=== PATIENT | male | born 1965 | race Caucasian/White ===

== ENCOUNTER 2021-06-30 09:51 | Outpatient (RCR) | payer BC, SELFPAY ==
[2021-06-30] MEDS: diphenhydrAMINE HCl CAP 25 MG CAPSULE PO (12:13)
[2021-06-30] MEDS: FAMOTIDINE 20 MG TABLET PO (12:13)
[2021-06-30] MEDS: ACETAMINOPHEN 325 MG TABLET 650 MG PO (12:13)
[2021-06-30 12:17] VITALS: BP 162/90; PULSE 77; RESP 20; TEMP 36.4; O2SAT 100
[2021-06-30 13:43] VITALS: BP 144/93; PULSE 70; O2SAT 98
== END 2021-06-30 17:00 ==
LOC: AMCINF 09:51
PROVIDERS: PCP Physician Assistant; Visit Provider Internal Medicine Hematology & Oncology
DX: U07.1 COVID-19 (principal)
CPT/HCPCS: A9270; M0243; Q0244

== ENCOUNTER 2021-07-03 09:39 | Outpatient (CLI) | payer BC, SELFPAY ==
--- NOTE | ~2021-07-03 | CT_ITS ---
EXAMINATION: CT brain wo con DATE: 07/03/2021 10:03 INDICATION: Cerebral infarction, unspecified. TECHNIQUE: Computed tomography (CT) of the head was performed without intravenous contrast. The mA wa s adjusted according to patient size. Iterative reconstruction technique was employed. The dose-lengt h product was 681.00 mGy-cm. COMPARISON: None FINDINGS: There is a 5.7 x 3.9 x 4.2 cm mass involving the right thalamus and right temporal lobe. Th e mass demonstrates a periphery that is predominantly isodense to ascencio matter. The central portions o f the mass are predominantly hypodense. The mass demonstrates areas of internal hyperdensity there ar e likely intratumoral hemorrhage. There is 7 mm leftward midline shift. There is mass effect on right lateral ventricle. There is no acute ischemic infarct. There is mild mucosal thickening in the paran radha sinuses. The mastoid air cells are normal. The orbits are normal. IMPRESSION: 1. 5.7 cm mass involving the right thalamus and right temporal lobe, most likely glioblastoma. I call ed this result to Florencio Tellez. Reviewed, dictated and finalized at location B. LING TECH IMPRESSION: 1. 5.7 cm mass involving the right thalamus and right temporal lobe, most likel y glioblastoma. I called this result to Florencio Tellez.
== END 2021-07-03 09:40 | disposition home or self-care (01) ==
PROVIDERS: PCP Internal Medicine; Visit Provider Physician Assistant
DX: I63.9 Cerebral infarction, unspecified (principal)
CPT/HCPCS: 70450

== ENCOUNTER 2021-11-13 14:00 | Outpatient (RCR) | payer BC, SELFPAY ==
--- NOTE | 2021-10-15 10:36 | PTOPEVAL ---
PHYSICAL THERAPY EVALUATION AND PLAN OF CARE 10-15-21 Thank you for referring Andrea Juarez III to [facility] for the diagnosis of L hemiparesis. Venkata is scheduled to be seen for therapy? 2 x/week for 4 weeks. Please review, sign, date and return this plan of care EULALIA. I agree with and certify that the following plan of care is medically necessary. Referring Physician Date Attending Provider: Kristan Hua MD CC: Dr. Damon, per pt request Source of Past Medical History Patient Neurological History Hx Other Neurological Disorders Yes: weakness L side due to brain surgery Cardiovascular History Hx Hypercholesterolemia Yes: meds Respiratory History Hx COVID-19 Yes: Jun 2021 Gastrointestinal History Hx Gastrointestinal Disorders No Significant History Genitourinary History Hx Genitourinary Disorders No Significant History Musculoskeletal History Hx Musculoskeletal Disorders No Significant History Hematological History Hx Hematological Disorders No Significant History Endocrine History Hx Endocrine Disorders No Significant History HEENT History Hx HEENT Disorders No Significant History Other History Hx Cancer Yes: malignant neoplasm brain, found visual field issues; Hx Chemotherapy Yes: for 6 weeks, completed Hx Radiation Therapy Yes: for 6 weeks; completed Evaluation Information Diagnosis 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 therapy sevices; is doing exercises at home- standing and sitting, up to 20 reps; fatigues in the afternoon, usually sit and rest ~ 30- 40 minutes; Prior Level of Function Occupation work in construction, own construction co, office and on homes Hand Dominance Right Activity of Daily Living Ability Independent Indoor/Home Mobility Independent Community Mobility Independent Stairs Ability Independent Functional Cognition (Planning, Shopping Independent , Taking Medications) Cooking Yes Cleaning Yes Laundry
--- NOTE | 2021-10-15 11:35 | OTOPEVAL ---
OCCUPATIONAL THERAPY INITIAL EVALUATION REPORT 10/15/21 Thank you for referring Andrea Juarez III to [facility].? The patient is scheduled to be seen for occupational therapy? 2x/week for 4 weeks. Please review, sign, date and return this plan of care EULALIA. I agree with and certify that the following plan of care is medically necessary. Referring Physician Date Referring Provider: Kristan Hua MD CC per patient request: Dr. Price *OT Outpatient Evaluation Start: 10/15/21 10:17 Outpatient Past Medical History Past Medical History Source of Past Medical History Patient Neurological History Hx Other Neurological Disorders Yes: weakness L side due to brain surgery Cardiovascular History Hx Hypercholesterolemia Yes: meds Respiratory History Hx COVID-19 Yes: Jun 2021 Gastrointestinal History Hx Gastrointestinal Disorders No Significant History Genitourinary History Hx Genitourinary Disorders No Significant History Musculoskeletal History Hx Musculoskeletal Disorders No Significant History Hematological History Hx Hematological Disorders No Significant History Endocrine History Hx Endocrine Disorders No Significant History HEENT History Hx HEENT Disorders No Significant History Other History Hx Cancer Yes: malignant neoplasm brain, found visual field issues; Hx Chemotherapy Yes: for 6 weeks, completed 10-07-21 Hx Radiation Therapy Yes: for 6 weeks; completed 10-07-21 Evaluation Information Problem Diagnosis 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 Had surgery to remove Family on 07/11/21. He is s/p chemo and radiation tx. Patient had therapy at [facility] and [facility]. He is now referred to outpatient OT/PT with residual left sided weakness. He reports he is very motivated and compliant with all exercises. Prior Level of Function Activity Level (Last 3 Months) Occupation work in construction, owns construction company Hand Dominance Right Activity of Daily Living Ability Independent Indoor/Home Mobility Independent Community Mobility Independent Stairs Ability Independent Functional Cognition (Planning, Shopping Independent , Taking Medications) Cooking Yes Cleaning Yes Laundry Yes Shop
--- NOTE | 2021-11-04 13:48 | PCOTNOTE ---
Patient 45 min late to OT session today. Did not see patient. He states they were running late, but made it for their 1:30 PT session.
--- NOTE | 2021-11-13 13:45 | PTOPEVAL ---
PHYSICAL THERAPY DISCHARGE 11-13-21 Refer to the clinical summary below, for his status today, compared to the initial evaluation. The goals were partially met. Discharge PT services and he is to continue with his home exercises and increasing activity level as tolerated. Thank you for referring Andrea Juarez III to [facility].? Please review, sign, date and return this Discharge report EULALIA. I agree with and certify that the following plan of care is medically necessary. Referring Physician Date Attending Provider: Kristan Hua MD CC: Dr. Price, per pt request Subjective Information Venkata reports: therapy is Query Text:As Reported By Patient/ going well; at home, do not Family have any problems getting around--doing yard work, going downstairs, showering, loading and unloading the senior field engineer; returned to doing some work tasks--office and email work; doing all of the therapy exercises and now also doing in the pool; have not had any falls; walking without the cane at home, use it when go outside; started another round of chemo meds, will be for 6 months total; Pain Assessment Self Report Pain Level 0 Gross Lower Extremity Strength functional strength testing: L LE: - sitting ankle DF x 20 reps, with same range of DF as R ankle -sitting ankle circles: 20 reps clock and counter clock decker with good control; - single leg standing R 6/ L 2 seconds -supine SLR x 25 reps with good knee position in 0'; - side lying hip abduction x reps with knee extension 0'; - sit to/from stand without use of UE's Perales Balance Assessment PERALES Balance Evaluation Total Score (/56 48 points) Time Up Go (TUG) Timed Up and Go Test (TUG) (Seconds) 21 Assistive Devices None 5 Time Sit to Stand Time in Seconds 38 5 Time Sit to Stand Comments use of R UE on chair Query Text:Normative Data: If Greater Than 15 Seconds, 74% Increase Risk for Recurrent Falls 2 Minute Walk Total Distance Walked (feet) 150 Number of Breaks Required 0 2 Mi
--- NOTE | 2021-11-13 14:41 | OTOPEVAL ---
OCCUPATIONAL THERAPY RE-EVALUATION REPORT AND DISCHARGE SUMMARY 11/13/21 Venkata presents for OT re-evaluation after 7 treatment sessions for residual left sided weakness following brain tumor surgery. He has made progress with functional ROM and strength of the left UE. He continues to have absent sensation to the left UE,, which greatly retricts his fine motor progress. He reports independence with ADLs, some cooking, cleaning, and some yard work. He is very motivated and purposefully uses the left arm for more tasks each week. At this time he is independent with all home exercises. Discharging with HEP. Thank you for referring Andrea Juarez III to [facility].? Please review, sign, date and return this D/C Note EULALIA. I agree with and certify that the following plan of care is medically necessary. Referring Physician Date Attending Provider: Kristan Hua MD CC: Dr. 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 Family States he has been doing yard work, unloading the medical intern , and getting into the pool. He states he makes an effort to use the left hand more to close doors, turn on lights, reach for his toothbrush, put on shaving cream, shampoo/wash hair, etc. Pain Assessment Timing of Pain Assessment Timing of Pain Assessment Assessment Self Report Self Report Pain Level 0 Pain Score Pain Score 0: Self Report Upper Extremity Range of Motion Scapular/ Shoulder Range of Motion Left Scapular: Retraction Normal Scapular: Protraction Normal Scapular Upward Rotation Normal Shoulder Flexion - Active 120 Shoulder Abduction - Active 120 Shoulder Medial Rotation - Active Reaches low back/sacral area. Query Text:Reach Behind the Back Shoulder Lateral Rotation - Active Reaches back of head. Query Text:Reach Behind the Head Scapular/Shoulder Range of Motion flexion improved from 110* Comments abduction improved from 70* Elbow/Forearm Range of Motion Left Elbow Flexion - Active 135 Elbow Extension - Active 0 Forearm Supination - Active 90 Forearm Pronation - Active 90 Elbow/Forearm Range of Motion Comments elbow flexion improved from 125* elbow extension improved from -20* pronation/supination remained WFL at 90* Wrist Range of Motion Left Wrist Flexion - Active 65 Wrist Extension - Active 65 Upper Extremity Muscle Strength Kelsea
== END 2021-11-14 11:04 | disposition home or self-care (01) ==
LOC: ANHOT 14:00
PROVIDERS: PCP Internal Medicine
DX: G81.94 Hemiplegia, unspecified affecting left nondominant side (principal)
CPT/HCPCS: 97110; 97112; 97161; 97166; 97530